=== PATIENT | male | born 1955 | race African-American/Black ===

== ENCOUNTER 2018-01-22 16:28 | Emergency (ER) | payer OTHER | END 2018-01-22 16:54 | disposition home or self-care (01) | LOC: MADERS 16:28 | DX: T16.2XXA Foreign body in left ear, initial encounter (principal); E78.5 Hyperlipidemia, unspecified; K21.9 Gastro-esophageal reflux disease without esophagitis; I10 Essential (primary) hypertension; F17.210 Nicotine dependence, cigarettes, uncomplicated; Z79.899 Other long term (current) drug therapy | CPT/HCPCS: 69200 ==